=== PATIENT | female | born 1940 | race Caucasian/White ===

== ENCOUNTER → 2016-10-12 | Outpatient (CLI) | payer MEDICARE, OTHER ==
[~2016-10-12] MED LIST: ALDACTONE25 MG PO; AMLO5TAB2 PO; ASP81CT PO; ATEN25TA PO; ATN25T; BUSPIR; C250T PO; CALC-671 PO; CARV6.252; CHOL10002 PO; CLD600T; CLID1CAP12; CLID1CAP12 PO; CPM4T PO; DCS100C PO; DOXA2TAB2 PO; FENO35TA2 PO; HCT25T; HCT25T PO; HYDR-3924 PO; LACT10SO33 PO; LEVO88TA54 PO; LSRT50T; LVT.112T; LVT.1T PO; MECL25TA56 PO; METH454P PO; METH500T5; MONT5TAB16 PO; NFNEB10T PO; OMEP20CA12 PO; SMV10T; TRAM1TAB56 PO; TRAM50TA2 PO
--- NOTE | 2016-10-12 13:16 | Diagnostic Imaging Report ---
INDICATION: Chronic constipation, nausea, dizziness. FINDINGS: There is no pathological fecal loading. No evidence for bowel obstruction. No air-fluid levels, pneumatosis, or free air. IMPRESSION: Unremarkable supine and upright abdominal radiographs. Dictated by: Dictated on workstation # [id number]
== END ==
LOC: RAD 12:24
PROVIDERS: ATTEND Family Medicine
DX: R10.84 Generalized abdominal pain (principal); R42 Dizziness and giddiness; K59.00 Constipation, unspecified; R11.0 Nausea
CPT/HCPCS: 74020

== ENCOUNTER 2017-03-04 12:33 | Outpatient (CLI) | payer MEDICARE, OTHER ==
[2017-03-04 13:07] VITALS: BP 150/92
== END 2017-03-04 13:08 | disposition home or self-care (01) ==
LOC: CARD 12:33
PROVIDERS: ATTEND Pain Medicine Interventional Pain Medicine
DX: M54.16 Radiculopathy, lumbar region (principal); Z88.5 Allergy status to narcotic agent; Z88.0 Allergy status to penicillin; Z88.8 Allergy status to other drugs, medicaments and biological substances; M43.10 Spondylolisthesis, site unspecified; M47.817 Spondylosis without myelopathy or radiculopathy, lumbosacral region
CPT/HCPCS: 62323

== ENCOUNTER 2017-10-22 13:13 | Outpatient (RCR) | payer MEDICARE, OTHER | END 2018-01-04 | disposition home or self-care (01) | PROVIDERS: ATTEND Nurse Practitioner Family | DX: M51.26 Other intervertebral disc displacement, lumbar region (principal) ==

== ENCOUNTER 2018-08-13 19:41 | Outpatient (CLI) | payer MEDICARE, OTHER | END 2018-08-14 06:20 | disposition home or self-care (01) | LOC: SLEEP 19:41 | PROVIDERS: ATTEND Nurse Practitioner Family | DX: G47.33 Obstructive sleep apnea (adult) (pediatric) (principal); G47.36 Sleep related hypoventilation in conditions classified elsewhere | CPT/HCPCS: 95811 ==

== ENCOUNTER → 2020-06-13 | Outpatient (CLI) | payer MEDICARE ==
[~2020-06-13] MED LIST changes: -MONT5TAB16 PO; +MONT5TAB23 PO; -OMEP20CA12 PO; +OMEP20CA18 PO
--- NOTE | 2020-06-13 15:13 | Diagnostic Imaging Report ---
INDICATION: Hand and wrist pain. COMPARISON: None. FINDINGS: Three views of the right hand were obtained and show no fractures, dislocations, or other acute bony abnormalities. There are [id number] osteoarthritic changes of the first carpometacarpal joint space. Mild interphalangeal osteoarthritic changes are also noted. Otherwise, joint spaces are well maintained throughout. The soft tissues appear unremarkable. No radiopaque foreign bodies are identified. IMPRESSION: 1. No acute fracture or dislocation of right hand. 2. Osteoarthritic changes as described above. Dictated by: Dictated on workstation # [id number]
== END ==
LOC: RAD 13:16
PROVIDERS: ATTEND Nurse Practitioner Family
DX: M18.11 Unilateral primary osteoarthritis of first carpometacarpal joint, right hand (principal)
CPT/HCPCS: 73130

== ENCOUNTER 2020-09-06 11:12 | Outpatient (RCR) | payer MEDICARE, OTHER | END 2020-09-08 | disposition home or self-care (01) | LOC: CR 11:12 | PROVIDERS: ATTEND Internal Medicine Interventional Cardiology | DX: I25.118 Atherosclerotic heart disease of native coronary artery with other forms of angina pectoris (principal); Z95.1 Presence of aortocoronary bypass graft | CPT/HCPCS: 93798 ==

== ENCOUNTER 2020-09-13 11:55 | Outpatient (RCR) | payer MEDICARE | END 2020-12-08 | disposition home or self-care (01) | LOC: CR 11:55 | PROVIDERS: ATTEND Internal Medicine Interventional Cardiology | DX: I25.118 Atherosclerotic heart disease of native coronary artery with other forms of angina pectoris (principal); Z95.1 Presence of aortocoronary bypass graft | CPT/HCPCS: 93798 ==

== ENCOUNTER 2021-06-02 13:29 | Outpatient (RCR) | payer MEDICARE ==
[~2021-06-02 13:29] MED LIST changes: -MONT5TAB23 PO; +MONT5TAB24 PO; -TRAM1TAB56 PO; +TRAM1TAB57 PO
== END 2021-06-07 | disposition home or self-care (01) ==
PROVIDERS: ATTEND Nurse Practitioner Gerontology
DX: M47.816 Spondylosis without myelopathy or radiculopathy, lumbar region (principal)

== ENCOUNTER 2021-06-16 15:31 | Outpatient (RCR) | payer MEDICARE | END 2021-07-08 | disposition home or self-care (01) | PROVIDERS: ATTEND Nurse Practitioner Gerontology | DX: M47.816 Spondylosis without myelopathy or radiculopathy, lumbar region (principal) ==